=== PATIENT | female | born 1960 | race Caucasian/White ===

== ENCOUNTER 2022-10-12 12:05 | Emergency (ER) | payer SELFPAY ==
--- NOTE | 2022-10-12 12:11 | ED_ITS ---
HPI - General Adult General Chief complaint: Weakness Stated complaint: WEAKNESS Time Seen by Provider: 10/12/22 12:10 History of Present Illness HPI narrative: Patient presents to emergency department complaining of weakness. Patient states she was outside and felt like her heart was racing out of her chest. She stated she felt weak and felt like she couldn't talk for 10 minutes. It was as if the words would not come out. She [place] like She Was Having an Aura for Migraines. Called EMS and they arrived check patient's glucose and it was normal. Patient states she has mitral valve prolapse. She is now developing a headache. She denies any dizziness or feeling lightheaded. She denies any paresthesias, or focal weakness. She denies any visual disturbance. She states she feels like her head is shaking. She has a history of migraines for which she takes Imitrex. She has not taken any recently. She denies any trauma. She denies any chest pain, shortness of breath. She denies any nausea, vomiting, diarrhea, constipation, or abdominal pain. Patient denies any stress or anxiety.Patient does not see a neurologist. Related Data Home Medications Medication Instructions Recorded Confirmed sumatriptan succinate 50 mg tablet mg PO 10/12/22 Allergies Allergy/AdvReac Type Severity Reaction Status Date / Time No Known Drug Allergies Allergy Verified 10/12/22 12:26 Review of Systems ROS Status of ROS 10 or more systems reviewed and unremarkable except as noted in history and below [facility] Social History Smoking status: Never smoker Exam Narrative Exam Narrative: Nurses notes and vital signs reviewed and patient is not hypoxic. General: Nontoxic, Well-appearing and in no apparent distress. Skin: Warm, dry, no pallor noted. No Rash Head: Normocephalic, atraumatic. Neck: Supple, non-tender. Eye: Pupils are equal, round and EOMI. No scleral icterus. Ears, Nose, Mouth, and Throat: TM clear, no posterior oropharynx erythema or nasal mucosal hypertrophy, uvula is mid-line Oral mucosa is moist Cardiovascular: Regular Rate and Rhythm without murmur, gallop or rub. Respiratory: No accessory muscle use or respiratory distress. Lungs are clear to auscultation, no wheezing, rales or rhonchi Chest Wall: no tenderness Back: No midline thoracic or lumbar vertebral tenderness. No CVA tenderness Musculoskeletal: normal ROM, no calf or popliteal tenderness, no lower extremity edema/swelling GI: Abdomen is soft, non-distended. Normal bowel sounds. No masses appreciated. No tenderness to palpation. No rebound, guarding, or rigidity noted. Neurological: A&O x4. NIHSS=0 shakes her head flexing her neck as if she is restless, tremor, No cranial nerve dysfunction observed. No truncal ataxia. Moves all extremities. Sensation intact. Speech normal, no dysarthria, or aphasia. Psychiatric: Cooperative and interactive. flat affect Constitutional Vital Signs - 24 hr 10/12/22 12:15 10/12/22 12:29 10/12/22 14:27 Temperature 97.7 F Pulse Rate [Monitor] 80 80 Respiratory Rate 26 H 20 Blood Pressure [Right Arm] 153/82 H 133/72 H Pulse Oximetry 99 97 98 Oxygen Delivery Method Room Air Room Air Room Air 10/12/22 14:43 Temperature Pulse Rate [Monitor] 68 Respiratory Rate 20 Blood Pressure [Right Arm] 130/70 H Pulse Oximetry 95 Oxygen Delivery Method Room Air Course Vital Signs Vital signs: Vital Signs Temperature 97.7 F 10/12/22 12:15 Pulse Rate 80 10/12/22 12:15 Respiratory Rate 26 H 10/12/22 12:15 Blood Pressure 153/82 H 10/12/22 12:15 Pulse Oximetry 99 10/12/22 12:15 Oxygen Delivery Method Room Air 10/12/22 12:15 Temperature 97.7 F 10/12/22 12:15 Pulse Rate 68 10/12/22 14:43 Respiratory Rate 20 10/12/22 14:43 Blood Pressure 130/70 H 10/12/22 14:43 Pulse Oximetry 95 10/12/22 14:43 Oxygen Delivery Method Room Air 10/12/22 14:43 Medical Decision Making MDM Narrative Medical decision making narrative: Patient had an IV established. She was sent to CT scan on arrival. CT of the brain and CTs are unremarkable. Thyroid nodules were noted on ct. All results were discussed with patient. Patient was given Benadryl 50 mg IV on arrival which helped relieved all of her symptoms. Patient says she feels better she does not have any headache currently. All results were discussed with Dr. Morocho Stroke doctor [facility] who advised this is not an acute stroke and It could be more consistent with a complex migraine. All this was discussed with patient and daughter. The patient will stay with the daughter for the next 48 hours. Will follow up with her primary care doctor regarding today's visit. Patient is advised to take an aspirin. A return to the emergency Department with any other problems or concerns. At this time the patient is without objective evidence of an acute process requiring hospitalization or inpatient management. The patient has remained hemodynamically stable. No additional indication for emergent studies at this time. I answered all questions. Discussed discharge instructions including standard anticipatory guidance and what should prompt a return to the emergency department, including if they get worse are not getting better or develops any new or concerning symptoms. I've given them specific time frame in which to follow-up, and who to follow-up with. The patient demonstrates understanding. Patient is nontoxic and stable for discharge with outpatient follow-up. This note was created with the assistance of a speech recognition program. Although the intention is to generate documents that actually reflects the content of the visit, no guarantees can be provided that every mistake has been identified and corrected by editing. Lab Data Lab results reviewed: Yes I reviewed the patient's lab results Labs: Lab Results 10/12/22 Range/Units 12:20 WBC 6.2 (4.0-11.0) 10^3/uL RBC 4.32 (4.20-5.40) 10^6/uL Hgb 12.9 (12.0-16.0) g/dL Hct 39.1 (36.0-48.0) % MCV 90.5 (81.0-99.0) fL MCH 29.9 (26.7-34.0) pg MCHC 33.0 (29.9-35.2) g/dL RDW 12.8 (11.0-15.0) % Plt Count 245 (150-450) 10^3/uL MPV 11.4 (9.5-13.5) fL Neut % (Auto) 54.0 (43.0-75.0) % Lymph % (Auto) 36.9 (20.5-60.0) % Eagle % (Auto) 6.1 (1.7-12.0) % Eos % (Auto) 2.3 (0.9-7.0) % Baso % (Auto) 0.5 (0.2-2.0) % Neut # (Auto) 3.3 (1.4-6.5) 10^3/uL Lymph # (Auto) 2.3 (1.2-3.8) 10^3/uL Eagle # (Auto) 0.4 (0.3-0.8) 10^3/uL Eos # (Auto) 0.1 (0.0-0.7) 10^3/uL Baso # (Auto) 0.0 (0.0-0.1) 10^3/uL Abs Immat Gran (auto) 0.01 (0.00-0.03) 10^3/uL Imm/Tot Granulo (auto) 0.2 (0.0-0.5) % PT 10.7 (9.0-11.6) sec INR 1.01 APTT 25.6 (22.3-36.2) sec Sodium 138 (136-145) mmol/L Potassium 3.7 (3.5-5.1) mmol/L Chloride 103 (98-107) mmol/L Carbon Dioxide 26.4 (21.0-32.0) mmol/L Anion Gap 12.3 BUN 15.0 (7.0-18.0) mg/dL Creatinine 0.73 (0.55-1.02) mg/dL Est GFR ( Amer) >60 (>=60) Est GFR (Non-Af Amer) >60 (>=60) BUN/Creatinine Ratio 20.5 Glucose 108 H (74-106) mg/dL Calcium 8.9 (8.5-10.1) mg/dL Total Bilirubin 0.3 (0.2-1.0) mg/dL AST 14 L (15-37) U/L ALT 30 (14-59) U/L Alkaline Phosphatase 72 (46-116) U/L Troponin I High Sens 4.2 (4.0-51.3) pg/mL Total Protein 6.8 (6.4-8.2) g/dL Albumin 3.8 (3.4-5.0) g/dL Globulin 3.0 g/dL Albumin/Globulin Ratio 1.3 ECG Data Attestation: I personally reviewed and interpreted this ECG as follows: Critical Care Time Critical Care Time Attestation: Critical Care Time: 45 minutes, critical care time is separate from any procedures that are performed. The following was considered in the determination of critical care but not limited to the level medical decision-making, intensive cardiac and/or respiratory monitor, frequent vital sign monitoring, evaluation of laboratory studies, evaluation of a radiographic studies, oxygen monitoring and constant monitoring. Discharge Plan Discharge Chief Complaint: Weakness Clinical Impression: Aphasia, Heart palpitations, Tremor, Weakness Patient Disposition: Home, Self-Care Time of Disposition Decision: 14:44 Condition: Good Mode of Transportation: Private Vehicle Prescriptions / Home Meds: No Action sumatriptan succinate 50 mg tablet PO Instructions: Migraine Headache (ED), Aphasia (DC), Tremors (ED) Additional Instructions: Take a baby aspirin daily. Follow up with her primary care doctor regarding today's visit. He may to have a reevaluation of her thyroid test and discuss today's symptoms which have completely resolved. Return to the emergency department with a possible concerns as discussed. Stand Alone Forms: Portal Instructions Referrals: ROGER LEON [Primary Care Provider] - 1 week
--- NOTE | 2022-10-12 12:13 | CT_ITS ---
[address] [address] Patient Name: AJITH MAXWELL MRN: [id number] date: 1960 Sex: F Assigned Patient Location: ER Current Patient Location: ED.MAIN Accession/Order Number: [id number] Exam Date: 10/12/2022 12:12 Report Date: 10/12/2022 12:26 At the request of: SARAH PRIEST Procedure: CT stroke head/brain wo con EXAM: CT stroke head/brain wo con HISTORY: weakness COMPARISON: None. TECHNIQUE: Axial CT scans through the head were obtained without IV contrast administration. Dose reduction techniques were achieved by using: automated exposure control and/or adjustment of mA and /or kV according to patient size and/or use of iterative reconstruction technique. FINDINGS: There is no acute intracranial hemorrhage or abnormal extra-axial fluid collection. No mass effect or midline shift is seen. There is no evidence of large acute territorial infarction. There is no hydrocephalus. To the limit of CT, the posterior fossa appears unremarkable. The calvaria and extra cranial soft tissues are unremarkable. The visualized orbits show no abnormal mass. The visualized paranasal sinuses show no air-fluid level. Mastoid air cells are clear. IMPRESSION: No acute intracranial process. Electronically authenticated by: DEE BECKWITH Date: 10/12/2022 12:26
[2022-10-12 12:15] VITALS: BP 153/82; PULSE 80; RESP 26; TEMP 36.5; O2SAT 99; BMI 27.6
[2022-10-12 12:16] VITALS: PULSE 79
--- NOTE | 2022-10-12 12:17 | CT_ITS ---
[address] [address] Patient Name: AJITH MAXWELL MRN: [facility]:[id number] date: 1960 Sex: F Assigned Patient Location: ED.MAIN Current Patient Location: Accession/Order Number: [id number] Exam Date: 10/12/2022 13:00 Report Date: 10/12/2022 13:54 At the request of: SARAH PRIEST Procedure: CT angio neck EXAMINATION: CT angio head, CT angio neck HISTORY: weakness , migraine headache, twitching, history of seizures COMPARISON: CT head without contrast 10/12/2022 TECHNIQUE: Axial, Coronal, and Sagittal CT images with IV contrast. Multi-planar/3-D imaging to optimize visualization of vascular anatomy. Percent stenosis is based on NASCET criteria. Dose reduction techniques were achieved by using automated exposure control and/or adjustment of mA and/or kV according to patient size and/or use of iterative reconstruction technique. FINDINGS: HEAD: VASCULATURE: No significant stenosis. No visible aneurysm or vascular malformation. VENTRICLES: No enlargement or displacement. CEREBRUM: No excessive atrophy, mass, or hemorrhage, or abnormal enhancement. CEREBELLUM: No excessive atrophy, mass, or hemorrhage, or abnormal enhancement. BRAINSTEM: No excessive atrophy, mass, or hemorrhage, or abnormal enhancement. BASAL CISTERNS: No subarachnoid hemorrhage or effacement. SKULL: Negative. NECK: RIGHT INTERNAL CAROTID: No hemodynamically significant stenosis or dissection. EXTERNAL CAROTID: No hemodynamically significant stenosis or dissection. COMMON CAROTID: No hemodynamically significant stenosis or dissection. VERTEBRAL: No hemodynamically significant stenosis or dissection. LEFT INTERNAL CAROTID: No hemodynamically significant stenosis or dissection. EXTERNAL CAROTID: No hemodynamically significant stenosis or dissection. COMMON CAROTID: No hemodynamically significant stenosis or dissection. VERTEBRAL: No hemodynamically significant stenosis or dissection. OTHER: Small nonspecific nodules within thyroid gland. IMPRESSION: 1. Normal CT angiography of the head and neck. 2. No intracranial hemorrhage, mass, hydrocephalus. No significant degenerative changes. 3. Small nodules within the right and left lobe of the thyroid gland; nonspecific. Consider ultrasound follow-up if clinically indicated. Electronically authenticated by: GARY WILLS Date: 10/12/2022 13:54
--- NOTE | 2022-10-12 12:17 | ECG_ITS ---
The [facility] Test Date: 2022-10-12 Pat Name: AJITH MAXWELL Department: Room: - Gender: Female Manager Software: : 1960 Requested By: [id number] Order Number: [id number] Reading MD: ELVIS HDEZ Measurements Intervals [place] Rate: 79 P: 67 [place]: 126 QRS: -8 QRSD: 102 T: 40 QT: 386 QTc: 420 Interpretive Statements 1100 Sinus rhythm 9110 normal ECG No previous ECG available for comparison Electronically Signed On 10-13-2022 6:35:37 EDT by ELVIS HDEZ
--- NOTE | 2022-10-12 12:17 | CT_ITS ---
[address] [address] Patient Name: AJITH MAXWELL MRN: [facility]:[id number] date: 1960 Sex: F Assigned Patient Location: ED.MAIN Current Patient Location: Accession/Order Number: [id number] Exam Date: 10/12/2022 13:00 Report Date: 10/12/2022 13:54 At the request of: SARAH PRIEST Procedure: CT angio head EXAMINATION: CT angio head, CT angio neck HISTORY: weakness , migraine headache, twitching, history of seizures COMPARISON: CT head without contrast 10/12/2022 TECHNIQUE: Axial, Coronal, and Sagittal CT images with IV contrast. Multi-planar/3-D imaging to optimize visualization of vascular anatomy. Percent stenosis is based on NASCET criteria. Dose reduction techniques were achieved by using automated exposure control and/or adjustment of mA and/or kV according to patient size and/or use of iterative reconstruction technique. FINDINGS: HEAD: VASCULATURE: No significant stenosis. No visible aneurysm or vascular malformation. VENTRICLES: No enlargement or displacement. CEREBRUM: No excessive atrophy, mass, or hemorrhage, or abnormal enhancement. CEREBELLUM: No excessive atrophy, mass, or hemorrhage, or abnormal enhancement. BRAINSTEM: No excessive atrophy, mass, or hemorrhage, or abnormal enhancement. BASAL CISTERNS: No subarachnoid hemorrhage or effacement. SKULL: Negative. NECK: RIGHT INTERNAL CAROTID: No hemodynamically significant stenosis or dissection. EXTERNAL CAROTID: No hemodynamically significant stenosis or dissection. COMMON CAROTID: No hemodynamically significant stenosis or dissection. VERTEBRAL: No hemodynamically significant stenosis or dissection. LEFT INTERNAL CAROTID: No hemodynamically significant stenosis or dissection. EXTERNAL CAROTID: No hemodynamically significant stenosis or dissection. COMMON CAROTID: No hemodynamically significant stenosis or dissection. VERTEBRAL: No hemodynamically significant stenosis or dissection. OTHER: Small nonspecific nodules within thyroid gland. IMPRESSION: 1. Normal CT angiography of the head and neck. 2. No intracranial hemorrhage, mass, hydrocephalus. No significant degenerative changes. 3. Small nodules within the right and left lobe of the thyroid gland; nonspecific. Consider ultrasound follow-up if clinically indicated. Electronically authenticated by: GARY WILLS Date: 10/12/2022 13:54
--- NOTE | 2022-10-12 12:17 | XR_ITS ---
The [address] [address] Patient Name: AJITH MAXWELL MRN: [id number] date: 1960 Sex: F Assigned Patient Location: ER Current Patient Location: ER Accession/Order Number: [id number] Exam Date: 10/12/2022 13:13 Report Date: 10/12/2022 13:44 At the request of: SARAH PRIEST Procedure: XR chest 1V EXAMINATION: XR chest 1V HISTORY: weakness , migraines, twitching COMPARISON: No relevant comparison available. FINDINGS: LUNGS: No significant pulmonary parenchymal abnormalities. VASCULATURE: No increased pulmonary vasculature. PLEURA: No pneumothorax, effusion, or pleural thickening. CARDIAC: No cardiomegaly or cardiac silhouette abnormality. MEDIASTINUM: No visible mass or adenopathy. BONES: No fracture or visible bone lesion. OTHER: Negative. IMPRESSION: 1. No acute cardiopulmonary process. Electronically authenticated by: GARY WILLS Date: 10/12/2022 13:44
[2022-10-12 12:29] VITALS: O2SAT 97
[2022-10-12 12:30] LABS: Basophils Percent Auto 0.5 % (0.2-2.0); Eosinophils Absolute Auto 0.1 10^3/uL (0.0-0.7); Eosinophils Percent Auto 2.3 % (0.9-7.0); Hematocrit 39.1 % (36.0-48.0); Hemoglobin 12.9 g/dL (12.0-16.0); Immature Granulocytes Abs Auto 0.01 10^3/uL (0.00-0.03); Immature Granulocytes Pct Auto 0.2 % (0.0-0.5); Lymphocytes Absolute Auto 2.3 10^3/uL (1.2-3.8); Lymphocytes Percent Auto 36.9 % (20.5-60.0); Mean Corpuscular Hemoglobin 29.9 pg (26.7-34.0); Mean Corpuscular Volume 90.5 fL (81.0-99.0); Mean Platelet Volume 11.4 fL (9.5-13.5); Monocytes Absolute Auto 0.4 10^3/uL (0.3-0.8); Monocytes Percent Auto 6.1 % (1.7-12.0); Neutrophils Absolute Auto 3.3 10^3/uL (1.4-6.5); Platelet Count 245 10^3/uL (150-450); Red Blood Count 4.32 10^6/uL (4.20-5.40); Red Cell Distribution Width 12.8 % (11.0-15.0); White Blood Count 6.2 10^3/uL (4.0-11.0)
[2022-10-12] MEDS: DIPHENHYDRAMINE HCL 50 MG/ML (1ML) VIAL IV (12:43)
[2022-10-12] MEDS: 0.9 % SODIUM CHLORIDE 1,000 ML 999 ML IV (12:43)
[2022-10-12 12:45] LABS: Alanine Aminotransferase 30 U/L (14-59); Albumin Globulin Ratio 1.3; Albumin Level 3.8 g/dL (3.4-5.0); Alkaline Phosphatase 72 U/L (46-116); Anion Gap 12.3; Aspartate Amino Transferase 14 U/L (15-37); BUN Creatinine Ratio 20.5; Bilirubin Total 0.3 mg/dL (0.2-1.0); Calcium 8.9 mg/dL (8.5-10.1); Carbon Dioxide 26.4 mmol/L (21.0-32.0); Chloride 103 mmol/L (98-107); Estimated GFR (African America >60 (>=60); Estimated GFR (Non-African Ame >60 (>=60); Glucose 108 mg/dL (74-106); INR 1.01; Partial Thromboplastin Time 25.6 sec (22.3-36.2); Potassium 3.7 mmol/L (3.5-5.1); Prothrombin Time 10.7 sec (9.0-11.6); Sodium 138 mmol/L (136-145); Total Protein 6.8 g/dL (6.4-8.2)
[2022-10-12 12:51] LABS: Troponin I High Sensitivity 4.2 pg/mL (4.0-51.3)
[2022-10-12] MEDS: ONDANSETRON PF 4 MG/2 ML VIAL IV (12:53)
--- NOTE | 2022-10-12 13:31 | PC.NURSE ---
Patient wanted IV site changed. LAC site DC'd and restarted in RAC
[2022-10-12 14:27] VITALS: BP 133/72; PULSE 80; RESP 20; O2SAT 98
[2022-10-12 14:43] VITALS: BP 130/70; PULSE 68; RESP 20; O2SAT 95
== END 2022-10-12 15:13 | disposition home or self-care (01) ==
PROVIDERS: Emergency Provider Emergency Medicine
DX: R53.1 Weakness (principal); R47.01 Aphasia; R25.1 Tremor, unspecified; R00.2 Palpitations; I34.1 Nonrheumatic mitral (valve) prolapse; Z79.899 Other long term (current) drug therapy
CPT/HCPCS: 36415; 70450; 70496; 70498; 71045; 80053; 84443; 84484; 85025; 85610; 85730; 93005; 96374; 96375; 99285; Q9967

== ENCOUNTER 2022-12-06 09:04 | Outpatient (OUT) | payer SELFPAY ==
--- NOTE | 2022-12-06 11:02 | CA_ITS ---
Patient: AJITH MAXWELL Exam Date: 12/06/2022 : 1960 Gender:F Ordering : ROGER LEON Admission #: [id number] Family : Order #: [id number] CLICK HERE TO VIEW EXAM ECHOCARDIOGRAM REPORT PROCEDURE: CA ECHO DOPPLER COMPLETE INDICATIONS: TIA, PFO, Mixed hyperlipidemia COMPARISON: None. DESCRIPTION: COMPLETE ECHOCARDIOGRAM Real-time transthoracic echocardiography with 2D, M-mode, spectral and color flow Doppler performed. QUALITY: Technical quality was good. LEFT VENTRICLE: Normal chamber size. Normal left ventricular wall thickness. Normal systolic function. LV EF: Normal left ventricular ejection fraction, (>55%). DIASTOLIC: Normal diastolic function. ATRIAL SEPTUM: Intact atrial septum. Agitated saline contrast does not reveal an intra-cardiac shunt. LEFT ATRIUM: Normal chamber size. RIGHT ATRIUM: Normal chamber size. RIGHT VENTRICLE: Normal chamber size. Normal right ventricular systolic function. TRICUSPID VALVE: Normal mobility and thickness. No stenosis with mild regurgitation. No evidence of pulmonary hypertension. RVSP 34 mmHg MITRAL VALVE: Normal mobility and thickness. Posterior leaflet prolapse. No evidence of mitral valve stenosis. There is no mitral annular calcification. Trivial mitral regurgitation. AORTIC VALVE: Normal trileaflet appearance. No visible sclerosis. Normal leaflet mobility. No evidence of aortic valve stenosis. No aortic regurgitation. AORTIC ROOT: Normal diameter and appearance. PULMONIC VALVE: Normal thickness and mobility. No stenosis. Trivial regurgitation. PERICARDIUM: No evidence of pericardial effusion. IVC: Collapses with inspirations. PLEURA: CONCLUSION: 1. Normal ventricular function. LVEF is 55 to 60%. 2. No significant valvular dysfunction. 3. Normal right-sided pressures. 4. No evidence of intracardiac shunt by agitated saline contrast injections. Adult Echocardiography Procedure Report Left Ventricle LVEDD (3.7 - 5.6 cm): 4.70 cm LVESD (2.2 - 4.0 cm): 3.12 cm LVIVS thickness (0.6 - 1.2 cm): 0.93 cm LVPW thickness (0.5 - 1.0 cm): 0.99 cm e': 0.10 m/s E - e': 7.19 LVOT Max Gradient: 4.37 mm[Hg] LVOT Area (cm2): 1.05 m/s Peak Velocity (LVOT): 1.05 m/s LVOT Diameter 2.02 cm Left Atrium LA Volume Index (2D A2C): 27.00 ml/m2 Left Atrium Systolic Dimension: 3.76 cm Mitral Valve MV E to A Ratio: 0.93 Mitral Valve A-Wave Peak Velocity: 0.79 m/s Mitral Valve E-Wave Peak Velocity: 0.73 m/s Right Ventricle Aorta AO Root Diam: 2.96 cm Ascending Ao Diam: 2.83 cm Aortic Valve AoV Area (Peak Amari): 2.70 cm2, 2.70 cm2 Peak Velocity(Antegrade Flow): 1.24 m/s Peak Gradient(Antegrade Flow): 6.19 mm[Hg] Tricuspid Valve Peak Velocity (Regurgitant Flow): 2.79 m/s Pulmonic Valve Peak Velocity: 1.23 m/s Peak Gradient: 6.18 mm[Hg], 5.94 mm[Hg] Right Atrium Right Atrium Systolic Pressure: 40.77 ml, 40.77 ml Dictated by: Hipolito Andrews M.D. on 12/06/2022 at 17:37 Approved by: Hipolito Andrews M.D. on 12/06/2022 at 17:39
== END 2022-12-06 09:05 | disposition home or self-care (01) ==
LOC: CARD 09:05
DX: G45.9 Transient cerebral ischemic attack, unspecified (principal); E78.2 Mixed hyperlipidemia; Q21.12 Patent foramen ovale
CPT/HCPCS: 93306

== ENCOUNTER 2024-10-24 08:49 | Outpatient (OUT) | payer MEDICARE, SELFPAY ==
--- OUTSIDE RECORDS SUMMARY | 2024-10-24 08:52 | XMS_ITS | Encounter Summary ---
Author Organization [facility] Address [id number] [place] [address] Care Team Providers Care Customer Service Technician Name Role Phone Fortino Addison Primary Care Provider [phone] Encounter Details Date Type Department Care Team (Late st Contact Info) Description 10/13/2022 Orders Only [facility] [address] [place] [phone] Transcribe, Orders Support User Pain (Primary Dx) Social History Tobacco Use Types Packs/Day Years Used Date Smoking Tobacco: Never Assessed Comments Unknown Sex and Gender Information Value Date Recorded Sex Assigned at Not on file Legal Sex Female 2:38 PM EDT Gender Identity Not on file Sexual Orientation Not on file documented as of this encounter Plan of Treatment Not on file documented as of this encounter Results * CT angiogram carotid (10/12/2022 1:10 PM EDT) us Scanning Provider External IMG CT ORDERABLES Fin al Result * CT angiogram head (10/12/2022 1:05 PM EDT) us Scanning Provider External IMG CT ORDERABLES Fin al Result * CT brain without contrast stroke alert (10/12/2022 12:10 PM EDT) us Scanning Provider External IMG CT ORDERABLES Fin al Result documented in this encounter Visit Diagnoses Diagnosis Pain- Primary Generalized pain documented in this encounter Care Teams Customer Service Technician Relationship Specialty Start Date End Date Fortino Addison DO [address] [place] [address] PCP - General Family Medicine 05/01/21 documented as of this encounter
--- OUTSIDE RECORDS SUMMARY | 2024-10-24 08:52 | XMS_ITS | Clinical Summary ---
Author Organization [facility] [facility] Address [id number] [address] [place] [address] Care Team Providers Care Skylights Assembler Name Role Phone Fortino Addison DO Primary Care Provider [phone] Allergies No known active allergies Medications coenzyme Q10 30 mg capsule Take 1 capsule (30 mg total) by mouth 3 (three) times a day. Active SUMAtriptan (IMITREX) 25 mg tablet Take 2 tablets (50 mg total) by mouth once as needed for migraine. May repeat in 2 hours if unresolved. Do not exceed 200 mg in 24 hours. Active multivitamin-Ca -iron-minerals 27-0.4 mg tablet Take by mouth daily. Active Active Problems Problem Noted Date Diagnosed Date Migraine with aura and witho ut status migrainosus, not intractable 10/25/2022 Complicated migraine 10/25/2022 Social History Tobacco Use Types Packs/Day Years Used Date Smoking Tobacco: Never Assessed PHQ-2 Answer Date Recorded Total Score 0 10/25/2022 Hunger Screening Answer Date Recorded Within the past 12 months we worried whether our food would run out before we got money to buy more. Never True 10/25/2022 Within the past 12 months th e food we bought just didn't last and we didn't have money to get more. Never True 10/25/2022 Comments Unknown Sex and Gender Information Value Date Recorded Sex Assigned at Not on file Legal Sex Female 2:38 PM EDT Gender Identity Not on file Sexual Orientation Not on file Last Filed Vital Signs Vital Sign Reading Time Taken Comments Blood Pressure 135/69 10/25/2022 2:02 PM EDT Pulse 67 10/25/2022 2:02 PM EDT Temperature - - Respiratory Rate - - Oxygen Saturation - - Inhaled Oxygen Concentration - - Weight 76.2 kg (168 lb) 11/08/2022 12:43 PM EDT Height 172.7 cm (5' 8 ) 10/25/2022 2:02 PM EDT Body Mass Index 25.54 10/25/2022 2:02 PM EDT Plan of Treatment Health Maintenance Due Date Last Done Comments Tobacco Screening 1970 DTaP,Tdap and Td Vaccines (1 - Tdap) 1977 Zoster (Shingles) Vaccine (1 of 2) 2008 Depression Screening 10/26/2023 10/25/2022 Adult BMI Screening 11/09/2023 11/08/2022 Fall Risk Screening 11/30/2023 Influenza Vaccine 12/30/2024 02/07/2020, 02/03/2020 Medical Devices Not on file Care Teams Skylights Assembler Relationship Specialty Start Date End Date Fortino Addison DO [address] [place] [address] PCP - General Family Medicine 05/01/21
--- OUTSIDE RECORDS SUMMARY | 2024-10-24 08:52 | XMS_ITS | Clinical Summary ---
Author Organization [facility] Healthcare Address [address] [place] [address] Care Team Providers Care Collector Of Internal Revenue Name Role Phone Unavailable Primary Care Provider Unavailabl e Social History Tobacco Use Types Packs/Day Years Used Date Smoking Tobacco: Never Assessed Comments Unknown Sex and Gender Information Value Date Recorded Sex Assigned at Not on file Legal Sex Female 11:08 PM EDT Gender Identity Not on file Sexual Orientation Not on file Last Filed Vital Signs Vital Sign Reading Time Taken Comments Blood Pressure - - Pulse - - Temperature - - Respiratory Rate - - Oxygen Saturation - - Inhaled Oxygen Concentration - - Weight 86.2 kg (190 lb) 05/19/2020 12:00 PM EST Height 170.2 cm (5' 7 ) 05/19/2020 12:00 PM EST Body Mass Index 29.76 05/19/2020 12:00 PM EST Plan of Treatment Upcoming Encounters Date Type Department Care Team (Late st Contact Info) Description 12/10/2024 1:30 PM EDT Clinical Support [facility] [address] [place] [address] Karina Villanueva, [facility] [address] [place] [address]
--- OUTSIDE RECORDS SUMMARY | 2024-10-24 08:52 | XMS_ITS | Referral Summary ---
Author Organization [facility] Address [address] [place] [address] Care Team Providers Care Bone Plant Supervisor Name Role Phone Unavailable Primary Care Provider Unavailabl e Social History Tobacco Use Types Packs/Day Years Used Date Smoking Tobacco: Never Assessed Comments Unknown Sex and Gender Information Value Date Recorded Sex Assigned at Not on file Legal Sex Female 12:14 AM EDT Gender Identity Not on file Sexual Orientation Not on file Last Filed Vital Signs Vital Sign Reading Time Taken Comments Blood Pressure 134/80 09/10/2018 1:43 PM EDT Pulse - - Temperature - - Respiratory Rate - - Oxygen Saturation 98% 09/10/2018 1:44 PM EDT Inhaled Oxygen Concentration - - Weight 84.8 kg (187 lb) 09/10/2018 1:41 PM EDT Height 172.7 cm (5' 8 ) 09/10/2018 1:41 PM EDT Body Mass Index 28.43 09/10/2018 1:41 PM EDT Plan of Treatment Not on file
--- OUTSIDE RECORDS SUMMARY | 2024-10-24 08:52 | XMS_ITS | Clinical Summary ---
Author Organization [facility] Address [address] [place] [address] Care Team Providers Care Failure Analysis Technician Name Role Phone Unavailable Primary Care Provider [...]
--- NOTE | 2024-10-24 08:57 | MM_ITS ---
Patient Name: AJITH MAXWELL MR#: [id number] : 1960 Exam Date: 10/24/2024 Ordering Doctor: ROG[facility] LEON RADIOLOG[facility] REPORT PROCEDURE: MM TOMOSYNTHESIS SCREENING BI COMPARISON: MM TOMOSYNTHESIS SCREENING BI, 08/16/2022. MG MAMM SCREEN 3D RAMSEY CAD, 01/26/2021. MG MAMM SCREEN RAMSEY W CAD, 03/14/2019. MG MAMM SCREEN RAMSEY W CAD, 02/15/2011. INDICATIONS: Screening Calculator Name NCI Breast Cancer Risk Assessment Tool 5 Year Breast Cancer Risk 4.00% Lifetime Breast Cancer Risk 14.50% Personal Breast Cancer No Personal Ovarian Cancer No Treatments None Family Cancers Sister with breast cancer at age 58; Mother with omentum cancer at age 85; Grandmother-maternal with colon cancer at age 91; Father with prostate cancer at age 80. LOCATION: [facility] BREAST COMPOSITION: The breasts are extremely dense, which lowers the sensitivity of mammography. FINDINGS: RIGHT BREAST: No significant suspicious finding. Benign-appearing lymph nodes in the chest wall. Benign-appearing calcifications are. LEFT BREAST: No significant suspicious finding. Benign-appearing lymph nodes in the chest wall. Benign-appearing calcifications are. DIAGNOSTIC CATEGORY 2--BENIGN FINDING: RECOMMENDATIONS: ROUTINE MAMMOGRAM AND CLINICAL EVALUATION IN 12 MONTHS. PLEASE NOTE: A NORMAL MAMMOGRAM DOES NOT EXCLUDE THE POSSIBILITY OF BREAST CANCER. A CLINICALLY SUSPICIOUS PALPABLE LUMP SHOULD BE BIOPSIED. Dictated by: Amrit Kaba MD on 10/24/2024 at 13:51 Approved by: Amrit Kaba MD on 10/24/2024 at 13:57
== END 2024-10-24 08:50 | disposition home or self-care (01) ==
LOC: MAMMO 08:51
DX: Z12.31 Encounter for screening mammogram for malignant neoplasm of breast (principal); Z80.3 Family history of malignant neoplasm of breast; Z80.0 Family history of malignant neoplasm of digestive organs; Z80.8 Family history of malignant neoplasm of other organs or systems; Z80.42 Family history of malignant neoplasm of prostate
CPT/HCPCS: 77063; 77067

== ENCOUNTER 2024-12-24 06:40 | Outpatient (OUT) | payer MEDICARE, SELFPAY ==
--- OUTSIDE RECORDS SUMMARY | 2023-05-10 07:15 | XMS_ITS | Continuity of Care Document ---
Author Organization [facility] Address [address] [place] [phone] Phone Care Team Providers Care Tenter Name Role Phone Albino KARTHIKShalondaha Unavailable Unavailable Allergies, Adverse Reactions, Alerts Substance Reaction Status Criticality fish oil Migraine(moderate) Active No Inform ation Medications Medication Instructions Dosage Effective Dates (start - stop) Status Comments Vazalore 81 mg capsule take 1 capsule by oral route every day 81 MG - Active Vazalore 81 mg capsule take 1 capsule by oral route every day 81 MG - Active Co Q-10 10 mg capsule - Active Imitrex 50 mg tablet take 1 tablet by or al route after onset of migraine; may repeat after 2 hours if headache returns,not to exceed 200mg in 24hrs 50 MG - Active Procedures Procedure Date Prophylaxis Adult Nutrit Couns For Control Of [place] Dis May Oral Hygiene Instruction Resin Two Surfaces Anterior Treatment Completed Oral Hygiene Instruction Intraoral-complete Series (bw) Comp Oral Eval New/estab Patient 2022 Prophylaxis Adult Moderate Risk Nutrit Couns For Control Of [place] Dis Oct Oral Hygiene Instruction ROUTINE VENIPUNCTURE OFFICE/OUTPATIENT VISIT, EST PREV VISIT, EST, AGE 40-64 PREVENTIVE NEW AGE 40-64 ROUTINE VENIPUNCTURE Advance Directives Directive Yes / No Effective Date File Name No Information Encounters Encounter Description Practice Location Reason(s) For Visit Diagnoses Date Provider Providers Copied on Encounter [facility], [address] [place] [address], [id number] , [place] tel:[phone] [facility] [place] (chief complaint) Body mass index [BMI] 22.0-22.9, adultEncounter for screening for dental disorders 4 Hudsonanuja [facility] Suyapa. . tel:+ [phone] [facility], [address] [place] [address], [id number] , [place] tel:+ [phone] Dental Clinic Filling (chief complaint) Encounter for screening for dental disorders 3 Albino DDS Suyapa. . tel:+ [phone] [facility], [address] [place] [address], [id number] , [place] tel: [phone] Dental Clinic [place] (chief complaint) Encounter for screening for dental disorders 3 Albino S Suyapa. . tel:+ [phone] [facility], [address] [place] [address], [id number] , [place] tel:+ [phone] [facility] Lab draw (chief complaint) Mixed hyperlipidemia 3 Kash Hernandez. [address] [place] [address], [id number] , [place]. tel: [phone] OFFICE/OUTPA TIENT VISIT, EST [facility], [address] [place] [address], [id number] , [place] tel:+ [phone] [facility] ER f/u (chief complaint) Body mass index [BMI] 25.0-25.9, adultUpper extremity weaknessAphasiaEpisod ic migraineMixed hyperlipidemia 3 Douglas Cat. [address] [place] [address], [id number] , [place]. tel:+ [phone] PREV VISIT, EST, AGE 40-64 [facility], [address] [place] [address], [id number] , [place] tel:+ [phone] [facility] annual exam (chief complaint) vaginal discharge/ itching (chief complaint) Encounter for gynecological examination (general) (routine) without abnormal findingsEncounter for screening mammogram for Ca of breastBody mass index [BMI] 25.0-25.9, adultVaginal itching 3 Ramón [facility] Chicas. [address] [place] [address], [id number] , [place]. tel:+ [phone] [facility], [address] [place] [address], [id number] , [place] tel:+ [phone] ECJFS Encounter for screening colonoscopy 3 Douglas Cat. [address] [place] [address], [id number] , [place]. tel: [phone] PREVENTIVE NEW AGE 40-64 [facility], [address] [place] [address], [id number] , [place] tel:+ [phone] [facility] Establish care (chief complaint) Body mass index [BMI] 25.0-25.9, adultWellness examinationNeed for hepatitis C screening testScreening for HIV (human immunodeficiency virus) 3 Douglas Cat. [address] [place] [address], [id number] , [place]. tel: [phone] Family History Family Member Type Diagnosis Age At Onset Sister Problem alcoholism Mother Problem Omentum (Cause Of ) 85 Brother Problem hypertension Sister Problem Mental illness Sister Problem High cholesterol Sister Problem Obesity Payers Payer name Insurance type Covered green party ID Authoriza tion(s) Self Pay Cap [id number] Social History Type Description Quantity Date Captured Comments Alcohol Use Details Caffeine Use Details coffee 2 cups per day Tobacco Use Status Current non-smoker 24 Smoking Status Never smoker Sex Female Sexual Orientation Straight or heterosexual Gender Identity Female Vital Signs Date / Time: Height Weight BMI Pulse Rate Blood Pressure Temperature Respiratory Rate Body Surface Area Head Circumference Head Circ. Percentile Wt./[place]. Percentile BMI percentile Pulse Ox Inhaled Ox 11:24 AM 71.00 in 74.162 kg (163.50 lbs) 22.8 0 kg/m eter (2) 63 /min 127/71 mm[Hg] 97.60 F Chief Complaint And Reason For Visit From encounter dated '05/10/2023 11:15'. PA (chief complaint). Description: PA Reason For Referral Reason For Referral No Information Plan Of Treatment Date Type Action Status Goal Hepatitis C screening. Due o n due Goal Zoster vaccine (). Due on due Goal HPV. Due on due Goal Depression screening. Due on due Goal Mammogram. Due on due Goal Influenza vaccine. Due on due Goal Lipid panel. Due on due Goal Unhealthy drug use screening . Due on due Goal PRAPARE ASSESSMENT. Due on due Goal Colonoscopy. Due on due Goal Tdap Vaccine. Due on 2023 due Goal Tdap. Due on due Goal Dietary management education , guidance, and counseling completed Goal Hep A. Due on du e Goal Tdap Vaccine. Due on 2022 due Goal Colonoscopy. Due on due Goal Tdap. Due on due Goal Influenza vaccine. Due on due Goal Lipid panel. Due on due Goal PRAPARE ASSESSMENT. Due on due Goal Depression screening. Due on due Goal Zoster vaccine (1st). Due on due Goal Mammogram. Due on due Goal Tdap Vaccine. Due on 2022 due Goal Tdap. Due on due Goal Colonoscopy. Due on due Goal Mammogram. Due on due Goal Influenza vaccine. Due on due Goal Lipid panel. Due on due Goal Zoster vaccine (). Due on due Goal Depression screening. Due on due Goal PRAPARE ASSESSMENT. Due on due Goal Tdap. Due on due Goal Lipid panel. Due on due Goal Influenza vaccine. Due on due Goal PRAPARE ASSESSMENT. Due on due Goal Zoster vaccine (1st). Due on due Goal Depression screening. Due on due Goal Tdap Vaccine. Due on 2022 due Goal Colonoscopy. Due on due Goal Mammogram. Due on due Goal Mammogram. Due on due Goal Lipid panel. Due on due Goal Tdap. Due on due Goal Zoster vaccine (1st). Due on due Goal Colonoscopy. Due on due Goal Influenza vaccine. Due on due Goal Tdap Vaccine. Due on 2022 due Goal PRAPARE ASSESSMENT. Due on due Goal Depression screening. Due on due Goal Dietary management education , guidance, and counseling completed Goal Influenza vaccine. Due on due Goal Zoster vaccine (). Due on due Goal Mammogram. Due on due Goal Tdap Vaccine. Due on 2022 due Goal Depression screening. Due on due Goal Tdap. Due on due Goal Lipid panel. Due on due Goal Colonoscopy. Due on due Goal PRAPARE ASSESSMENT. Due on A due Goal Dietary management education , guidance, and counseling completed Goal Tdap. Due on due Goal Zoster vaccine (1st). Due on due Goal Tdap Vaccine. Due on 2022 due Goal Colonoscopy. Due on due Goal Mammogram. Due on due Goal PRAPARE ASSESSMENT. Due on due Goal Depression screening. Due on due Goal Influenza vaccine. Due on due Goal Lipid panel. Due on due Goal Influenza vaccine. Due on due Goal Colonoscopy. Due on 023 due Goal Depression screening. Due on due Goal Mammogram. Due on due Goal PRAPARE ASSESSMENT. Due on M due Goal Lipid panel. Due on 028 due Goal Hep A. Due on du e Goal Tdap. Due on due Goal Tdap Vaccine. Due on 2022 due Goal Zoster vaccine (). Due on due Goal FOBT. Due on due Goal Dietary management education , guidance, and counseling completed Referral Ordered: Referrals: Neurology. Evaluate and treat ordered Referral Ordered: MAMMOGRAM, SCREENING Appointment date/timeframe: 08/16/2022 ordered Referral Ordered: COLONOSCOPY AND BIOPSY ordered History Of Present Illness Encounter Date Complaint History Of Prese nt Illness CHUY VERA Filling Continue with tr eatment ERINN PLASENCIA Lab draw Pt presents for lab draw. Labs drawn x1 RAC. 2x2 and bandage applied. //DEJUAN [facility] ER f/u Presents for ER follow up. Pt went to ER for possible TIA and had and aura while she was in the ambulance and they are now thinking complex migraines. [facility] did tell her to a baby Aspirin a day. States hx of migraines. States migraine symptoms have changed in the last 4 months. Pt needs referral to neurology. Eyad Espana RNTaken to ER on 10-12-22 notes patient went out to check on garden at home and projectile vomited her protein shake she had just finished. Notes after this she did not feel herself and felt as if she was out of her body. Notes she was found to have difficulty speaking by her neighbor who called EMS. Patient experienced right arm tingling and weakness during this time as well which lasted 1 day and resolved after ER discharge while at home wit daughter. During transport by EMS patient did note headache and symptoms typical of her migraine visual aura. While in ER at [facility] patient did note relief of headache, aphasia, and nausea after being medicated with benadryl and zofran. CT of head and CTA of neck performed, brain and vessels neck both normal. 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 Patient would like to be seen by neurologist. Missaelnfely MAKI vaginal discharge/itching Her sy mptoms began 2 Days ago. Presently the patient is experiencing vaginal itching. Presently the patient is not experiencing vaginal odor and vaginal discharge. The patient is postmenopausal. Additional information: Patient is here to establish care. States she went through menopause at the age of 58yr old and her symptoms are minimal. C/o vaginal itching and irritation without discharge or odor. States she is sexually active sometime, but not as often as she used to be as he is having some issues. annual exam Currently pregna nt: no. : 3. Parity: Term: 3. Livin. Patient is not contemplating . The patient states she uses menopausal for control. Her menses is absent. Negative for dysmenorrhea. Negative for: breast discharge, breast lump(s), breast pain and breast self exam.Postmenopausal: Age: 58, Type: natural. Negative for Hormone replacement therapy. Menopausal symptoms positive for: hot flashes. She does drink alcohol. Establish care Presents to [facility]. States she has been pretty healthy and recently lost insurance. States less than a year since last PAP and mammogram. Last colonoscopy was less than a year. Colonoscopy and Mammogram were done at [facility]. Last Dental appt was 5 months ago but will need dental due to losing insurance. Eyad Espana RNPrevious SEAM RUBBER, Dr. Saurav Mcguire prior to losing insurance, [facility] started crown replacement prior to losing insuranceWorks as nurses aide, currently private aide to 1 patientColonoscopy [facility] with aura manages with triptan and lifestyle modifications, triptan use typically twice per month, this month zero exacerbation's with change to keto diet. Migraines worsen with fish oil supplementation, onset otherwise is sporadic. Notes previously + for 1 factor of alpha 1 antitrypsin deficiency, was referred to pulmonology per prior PCP however did not have chance to follow up. Annual influenza UTD 2021, no prior pneumonia vaccine. Typically 1 URI per year which becomes bronchitis. Exercises 5-6 days per week at [facility] center. Weight loss from lifestyle modifications of 40 lbs or more intentional. History of elevated lipids in past, no first degree history of CVA or CVD. Prefers to remain off of statins if possible and treat with lifestyle modifications. Never a smoker. History of palpitations since youth treated with PRN CoQ10, notes well controlled with this supplementation. History of PFO in past. 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 ER via 911 for re turn of symptoms2. ASA daily3. repeat lipids4. Referral to Neurology If you have not been contacted per specialist office to which you referred to in 2 weeks please contact the [facility] at [phone] and advise triage nurse. Related to Upper extremity weakness 1. ER via 911 for re turn of symptoms2. ASA daily3. repeat lipids4. Referral to Neurology If you have not been contacted per specialist office to which you referred to in 2 weeks please contact the [facility] at [phone] and advise triage nurse. Related to Aphasia 1. ER via 911 for re turn of symptoms2. ASA daily3. repeat lipids4. Referral to Neurology If you have not been contacted per specialist office to which you referred to in 2 weeks please contact the [facility] at [phone] and advise triage nurse. Related to Mixed hyperlipidemia 1. Take your medicat ions as prescribed2. Over the Counter ibuprofen, acetaminophen, or excedrin for breakthrough headaches3. Prescribed medication as ordered4. healthy well balanced diet5. maintain adequate sleep and good sleep hygiene6. Exercise 30-60 minutes 3-5 days per week7. Follow up: 1 Month Related to Episodic migraine Dietary management e ducation, guidance, and counseling Related to Body mass index [BMI] 25.0-25.9, adult Giving encouragement to exercise Related to Body mass index [BMI] 25.0-25.9, adult Discussed vaginal it ryan in detail Rx for nystatin cream and triamcinolone cream were sent to her pharmacy. Apply small amount external itching for 7-10 days Related to Vaginal itching Encouraged monthly B SE. Recommend calcium 1000mg QD. Encouraged good dietary intake and exercise. Laboratory specimens sent to lab. Patient to call in 2 weeks if desires results. Related to Encounter for gynecological examination (general) (routine) without abnormal findings Giving encouragement to exercise Related to Body mass index [BMI] 25.0-25.9, adult Dietary management e ducation, guidance, and counseling Related to Body mass index [BMI] 25.0-25.9, adult 1. pending Related to Need for hepatitis C screening test pending Related to Scree mel for HIV (human immunodeficiency virus) 1. Low fat, low adde d sugar, and well balanced diet2. Good sleep hygiene with adequate sleep time3. 30-45 minutes of moderate intensity exercise 3-5 days per week4. Continue regular preventative visits with dental provider5. Ensure all preventative screening is completed and up to date6. Follow up annually or as needed7. Ensure you up date your influenza and COVID-19 vaccinations as recommended.8. [facility] Related to Wellness examination Giving encouragement to exercise Related to Body mass index [BMI] 25.0-25.9, adult Dietary management e ducation, guidance, and counseling Related to Body mass index [BMI] 25.0-25.9, adult Assessments Type Assessment Date assessment Body mass index [BMI] 22.0-22.9, adult Patient Care Teams Name Effective Dates (start - stop) Status Members No Information
--- OUTSIDE RECORDS SUMMARY | 2024-12-10 13:30 | XMS_ITS | Encounter Summary ---
Author Organization [facility] Address [address] [place] [address] Care Team Providers Care Fur Tanner Name Role Phone Unavailable Primary Care Provider Unavailabl e Encounter Details Date Type Department Care Team (Latest Contact Info) Description 12/10/2024 1:30 PM EDT Clinical Support [facility] [address] [place] [address] Karina Villanueva CCC-A [address] [place] [address] Sensorineural hearing loss (SNHL) of both ears (Primary Dx); Pulsatile tinnitus of both ears; Otalgia, right Social History Tobacco Use Types Packs/Day Years Used Date Smoking Tobacco: Never Assessed Comments Unknown Sex and Gender Information Value Date Recorded Sex Assigned at Not on file Legal Sex Female 11:08 PM EDT Gender Identity Not on file Sexual Orientation Not on file documented as of this encounter Progress Notes * CARA Lam - 12/10/2024 1:30 PM EDT History: Pt was referred to ENT because of change of hearing in right ear. Pt noticed her hearing decreased after a fall 2 years ago (September 2022 and October 2022). Pt fell off of a scooter in September 2022. Her 2nd fall was different - pt could not speak, was dizzy, and almost passed out. Initially doctors thought she was having a stroke but was eventually diagnosed with a complex migraine. Pt has several medicalissues related to the fall including difficulty swallowing on the right side, problems with the right side of her jaw locking, pain in the right ear (like ice pick,) and difficulty with her teeth. Ptalso hears her heart beating in both ears. Pt has difficulty hearing in the presence of background noise. Sometimes the ears feel like she is under water. It takes 5 or more seconds for the right earto clear after the valsalva. Otoscopic Exam: Ear canal clear and TM intact AU Pure Tone Audiometry Right Ear: Mild to moderate sensorineural hearing loss above 1K Hz Left Ear: Mild hearing loss at 250 Hz rising to normal hearing from 500 Hz - 1K Hz. Mild to moderate sensorineural hearing loss above 1K Hz Speech Audiometry Right SRT = 25 dB and word discrimination score at 60 dBHL (masked) = 100% Left SRT = 20 dB and word discrimination score at 65 dBHL (masked) = 96% Tympanometry Right Ear: Type tympanogram Left Ear: Type tympanogram Impressions & Recommendations: Symmetrical sensorineural hearing loss. Pt may benefit from hearing aids in more difficult listening situations. I do not believe she would perceive a benefit in quiet environments. Pt was told if she wants to get information about hearing aids she call call our office and request a hearing aid discussion. There is no charge for a hearing aid discussion appointment and no obligation to purchase he aring aids. Pt advised I will also send the results to her physician. documented in this encounter Plan of Treatment Not on file documented as of this encounter Procedures Procedure Name Priority Date/Time Associated Diagnosis Comments AUDITORY FUNCTION TESTS Routine 12/10/2024 2:20 PM EDT documented in this encounter Results * Auditory function tests (12/10/2024 2:20 PM EDT) Narrative Karina Villanueva CCC-A - 12/10/2024 2:20 PM EDT Right Ear: Mild to moderate sensorineural hearing loss above 1K Hz Left Ear: Mild hearing loss at 250 Hz rising to normal hearing from 500 Hz - 1K Hz. Mild to moderate sensorineural hearing loss above 1K Hz Karina [facility] Final Result documented in this encounter Visit Diagnoses Diagnosis Sensorineural hearing loss (SNHL) of both ears- Primary Pulsatile tinnitus of both ears Otalgia, right documented in this encounter
--- OUTSIDE RECORDS SUMMARY | 2024-12-24 06:45 | XMS_ITS | Encounter Summary ---
Author Organization [facility] Address [id number] [place] [address] Care Team Providers Care Fiber Optic Splicer Name Role Phone Fortino Addison DO Primary Care Provider [phone] Encounter Details Date Type Department Care Team (Late st Contact Info) Description 10/13/2022 Orders Only [facility] [address] [place] [id number] Transcribe, Orders Support User Pain (Primary [...] pain documented in this encounter Care Teams Fiber Optic Splicer Relationship Specialty Start Date End Date Fortino Addison DO [address] [place] [address] PCP - General Family Medicine 05/01/21 documented as of this encounter
--- OUTSIDE RECORDS SUMMARY | 2024-12-24 06:45 | XMS_ITS | Clinical Summary ---
Author Organization [facility] Address [address] [place] [address] Care Team Providers Care Electronics Teacher Name Role Phone Unavailable Primary Care Provider [...]
--- OUTSIDE RECORDS SUMMARY | 2024-12-24 06:45 | XMS_ITS | Encounter Summary ---
Author Organization [facility] Address [address] [place] [address] Care Team Providers Care Emergency Telecommunications Dispatcher Name Role Phone Unavailable Primary Care Provider Unavailabl e Encounter Details Date Type Department Care Team (Late st Contact Info) Description 12/10/2024 Bamboo flowsheet [facility] [address] [place] [address] Karina Villanueva, [facility] [address] [place] [address] Social History Tobacco Use Types Packs/Day Years Used Date Smoking Tobacco: Never Assessed Comments Unknown Sex and Gender Information Value Date Recorded Sex Assigned at Not on file Legal Sex Female 11:08 PM EDT Gender Identity Not on file Sexual Orientation Not on file documented as of this encounter Plan of Treatment Not on file documented as of this encounter Visit Diagnoses Not on filedocumented in this encounter
--- OUTSIDE RECORDS SUMMARY | 2024-12-24 06:45 | XMS_ITS | Clinical Summary ---
Author Organization [facility] Address [address] [place] [address] Care Team Providers Care Hot Blast Worker Name Role Phone Unavailable Primary Care Provider Unavailabl e Encounters Date Type Department Care Team Description 12/10/2024 1:30 PM EDT [facility] [address] [place] [address] Karina Villanueva CCC-A Sensorineural hearing loss (SNHL) of both ears (Primary Dx); Pulsatile tinnitus of both ears; Otalgia, right 12/10/2024 Bamboo flowsheet [facility] [address] [place] [address] Karina Villanueva CCC-A from Last 3 Months Social History Tobacco Use Types Packs/Day Years [...] 05/19/2020 12:00 PM EST Plan of Treatment Not on file Procedures Procedure Name Priority Date/Time Associated Diagnosis Comments AUDITORY FUNCTION TESTS Routine 12/10/2024 2:20 PM EDT from Last 3 Months Results * Auditory function tests (12/10/2024 2:20 PM EDT) Narrative Karina Villanueva, DONATO-A - 12/10/2024 2:20 PM EDT Right Ear: Mild to moderate sensorineural hearing loss above 1K Hz Left Ear: Mild hearing loss at 250 Hz rising to normal hearing from 500 Hz - 1K Hz. Mild to moderate sensorineural hearing loss above 1K Hz Karina Villanueva CCC-A [facility] Final Result from Last 3 Months Insurance MEDICARE
[2024-12-24 07:44] LABS: Alanine Aminotransferase 28 U/L (14-59); Albumin Globulin Ratio 1.2; Albumin Level 3.8 g/dL (3.4-5.0); Alkaline Phosphatase 50 U/L (46-116); Anion Gap 14.2; Aspartate Amino Transferase 13 U/L (15-37); Blood Urea Nitrogen 16.0 mg/dL (7.0-18.0); Calcium 8.8 mg/dL (8.5-10.1); Carbon Dioxide 27.8 mmol/L (21.0-32.0); Chloride 105 mmol/L (98-107); Cholesterol 305 mg/dL (<=200); Estimated GFR (African America >60 (>=60 mL/min/1.73m^2); Estimated GFR (Non-African Ame >60 (>=60 mL/min/1.73m^2); Globulin 3.1 g/dL; Glucose 99 mg/dL (74-106); HDL Cholesterol 94 mg/dL (40-60); Potassium 4.0 mmol/L (3.5-5.1); Sodium 143 mmol/L (136-145); Total Protein 6.9 g/dL (6.4-8.2); Triglycerides 78 mg/dL (<=150); VLDL CHOLESTEROL 15.6 mg/dL
[2024-12-24 08:09] LABS: Hematocrit 40.2 % (36.0-48.0); Hemoglobin 13.2 g/dL (12.0-16.0); Immature Granulocytes Abs Auto 0.01 10^3/uL (0.00-0.03); Immature Granulocytes Pct Auto 0.2 % (0.0-0.5); Lymphocytes Absolute Auto 2.0 10^3/uL (1.2-3.8); Mean Corpuscular HGB Conc 32.8 g/dL (29.9-35.2); Mean Corpuscular Hemoglobin 29.8 pg (26.7-34.0); Mean Corpuscular Volume 90.7 fL (81.0-99.0); Platelet Count 250 10^3/uL (150-450); Red Blood Count 4.43 10^6/uL (4.20-5.40); White Blood Count 4.2 10^3/uL (4.0-11.0)
== END 2024-12-24 06:41 | disposition home or self-care (01) ==
LOC: LAB 06:42
DX: Z00.00 Encounter for general adult medical examination without abnormal findings (principal); G43.909 Migraine, unspecified, not intractable, without status migrainosus; Q21.10 Atrial septal defect, unspecified; E78.2 Mixed hyperlipidemia; Z51.81 Encounter for therapeutic drug level monitoring
CPT/HCPCS: 36415; 80053; 80061; 85025